=== PATIENT | female | born 1945 | race Caucasian/White ===

== ENCOUNTER 2017-07-06 02:40 | Inpatient (IN) | payer OTHER ==
[~2017-07-06] VITALS: Ht 160 cm; Wt 60.3 kg
[2017-07-06] VITALS (7 sets, daily range): BP systolic 101–163; BP diastolic 47–99
[~2017-07-06 02:40] MED LIST: ALBU1AER4 IN; ALPR0.5T PO; DIG0125T PO; ENA2.5T PO; FURO80TA PO; GLIP-115 PO; HYDR-4683 PO; LEVO150T10 PO; MET50T PO; MULT1TAB23 PO; OMEP20CA74; POTA10TA34 PO; PRAV20TA3 PO; WARF5TAB71 PO
[2017-07-06] MEDS ORDERED: LORazepam 0.5 MG TAB PO PRN (03:30)
[2017-07-06] MEDS ORDERED: MORPHINE SULF INJ 2 MG/ML SYRINGE 1ML IV PRN ×2 (03:30→04:00)
[2017-07-06] MEDS ORDERED: NITROGLYCERIN 0.4 MG SL TAB SL PRN ×2 (03:30→04:00)
[2017-07-06] MEDS ORDERED: SODIUM CHLORIDE 0.9% 1,000 ML IV SCH (03:57)
[2017-07-06] MEDS ORDERED: IPRATROPIUM BROM 0.5 MG/2.5ML INH SOL NEB ONE (04:00)
[2017-07-06] MEDS ORDERED: LACTULOSE 20Gm/30ML SOLN PO PRN (04:00)
[2017-07-06] MEDS ORDERED: ALBUTEROL SULF 2.5 MG/0.5ML(0.5%) NEB SOLN NEB ONE (04:00)
[2017-07-06] MEDS ORDERED: DEXTROSE (50%) 50ML SYRG IV PRN (04:15)
[2017-07-06] MEDS: cefTRIAXone 1GM/50ML D5W 50 ML IV SCH ×2 (05:47→09:32)
[2017-07-06] MEDS: ACCU-CHEK COMFORT CURVE STRIP VI SCH ×3 (05:48→17:16)
[2017-07-06] MEDS: InsuLIN REG 1unit/0.01ml Soln (100units/ml) SC SCH ×3 (05:49→17:16)
[2017-07-06] MEDS ORDERED: ALPRAZolam 0.5 MG TAB PO SCH (06:00)
[2017-07-06] MEDS ORDERED: LEVOTHYROXINE SODIUM 50 MCG TAB PO SCH (07:00)
[2017-07-06] MEDS: IPRATROPIUM BROM 0.5 MG/2.5ML INH SOL NEB SCH ×5 (07:17→22:08)
[2017-07-06 08:04] LABS: Potassium 4.3 mmol/L (3.5-5.1)
[2017-07-06 08:05] LABS: Albumin 3.4 g/dL (3.4-5.0); BUN/Creatinine Ratio 21.8; Bilirubin, Total 1.4 mg/dL (0.2-1.0); Calcium 10.8 mg/dL (8.5-10.1); Total Protein 6.5 g/dL (6.4-8.2)
[2017-07-06 08:10] LABS: INR 2.4 (0.9-1.15); Prothrombin Time 26.4 sec (9.37-12.3)
[2017-07-06] MEDS: POTASSIUM CHL 10 Meq TABLET PO SCH (09:33)
[2017-07-06] MEDS ORDERED: PANTOPRAZOLE 40 MG/10 ML VIAL IV SCH (10:00)
[2017-07-06] MEDS ORDERED: DIGOXIN 0.125 MG TAB PO SCH (10:00)
[2017-07-06] MEDS ORDERED: METOPROLOL TARTRATE 25 MG TAB PO SCH (10:00)
[2017-07-06] MEDS ORDERED: ACETAMINOPHEN 500 MG TAB PO PRN (10:15)
[2017-07-06] MEDS: ALBUTEROL SULF 2.5 MG/0.5ML(0.5%) NEB SOLN NEB PRN ×4 (10:36→22:33)
[2017-07-06 15:28] LABS: Urine Bilirubin Negative (Negative); Urine Blood Negative /uL (Negative); Urine Color Yellow (Yellow); Urine Glucose 2+ mg/dL (Normal); Urine Ketone 1+ (Negative); Urine Nitrite Negative (Negative); Urine RBC <1 /hpf (0 - 4); Urine Squamous Epithelial Cell FEW /hpf (<5); Urine Urobilinogen Normal (Negative)
[2017-07-06] MEDS ORDERED: WARFARIN SODIUM 5 MG TAB PO ONE (17:00)
[2017-07-06] MEDS: Boost Glucose Control 8 Ounces PO SCH (17:16)
[2017-07-06] MEDS ORDERED: FUROSEMIDE 40 MG/4 ML VIAL IV SCH (18:00)
[2017-07-06] MEDS: HYDROcodone-ACET 10/325MG TAB PO PRN (20:00)
[2017-07-06] MEDS ORDERED: ATORVASTATIN 20 MG TAB PO SCH (22:00)
[2017-07-06] MEDS: ENALAPRIL MALEATE 2.5 MG TAB PO SCH (22:19)
[2017-07-06] MEDS: ASCORBIC ACID 500 MG TAB PO SCH (22:19)
[2017-07-06] MEDS: ALPRAZolam 0.5 MG TAB PO SCH (22:20)
[2017-07-06] MEDS: METOPROLOL TARTRATE 25 MG TAB PO SCH (22:20)
[2017-07-06] MEDS: DOCUSATE SOD 100 MG CAP PO SCH (22:21)
[2017-07-07] MEDS: IPRATROPIUM BROM 0.5 MG/2.5ML INH SOL NEB SCH ×3 (02:57→10:06)
[2017-07-07 05:00] VITALS: BP 96/52
[2017-07-07 05:23] LABS: Basophils # (auto) 0 uL; Basophils % (auto) 0.3 % (0.0-2.0); Eosinophils # (auto) 0 uL; Eosinophils % (auto) 0.2 % (0.0-7.0); Hematocrit 37.2 % (36.0-46.0); Hemoglobin 12.2 g/dL (12.2-16.2); Lymphocytes # (auto) 1.1 uL; Lymphocytes % (auto) 19.6 % (10.0-50.0); Mean Corpuscular Hemoglobin 29.8 pg (28.0-32.0); Mean Corpuscular Hgb Conc. 32.9 g/dL (32.0-36.0); Mean Corpuscular Volume 90.4 fL (80.0-100.0); Mean Platelet Volume 8.3 fL (6.9-10.8); Monocytes # (auto) 0.5 uL; Monocytes % (auto) 8.9 % (0.0-12.0); Nucleated Red Blood Cells % 0.1 %; Platelet Count (auto) 115 10^3/uL (140-450); Red Cell Distribution Width 14.7 % (11.8-14.3); White Blood Cell 5.6 10^3/uL (4.4-10.8)
[2017-07-07 05:32] LABS: INR 2.71 (0.9-1.15); Partial Thromboplastin Time 39.2 sec (22.64-33.71); Prothrombin Time 29.8 sec (9.37-12.3)
[2017-07-07] MEDS: ACCU-CHEK COMFORT CURVE STRIP VI SCH ×3 (06:00→12:00)
[2017-07-07] MEDS: InsuLIN REG 1unit/0.01ml Soln (100units/ml) SC SCH ×3 (06:00→12:00)
[2017-07-07 06:01] LABS: Albumin 3.1 g/dL (3.4-5.0); BUN/Creatinine Ratio 29.4; Bilirubin, Total 0.9 mg/dL (0.2-1.0); Calcium 10.5 mg/dL (8.5-10.1); Potassium 4.6 mmol/L (3.5-5.1); Total Protein 5.8 g/dL (6.4-8.2)
[2017-07-07] MEDS ORDERED: LEVOTHYROXINE SODIUM 50 MCG TAB PO SCH ×2 (07:00)
[2017-07-07] MEDS: Boost Glucose Control 8 Ounces PO SCH (08:00)
[2017-07-07 09:00] VITALS: BP 89/45
[2017-07-07] MEDS: HYDROcodone-ACET 10/325MG TAB PO PRN (09:30)
[2017-07-07] MEDS ORDERED: MULTIPLE VITAMIN TAB PO SCH (10:00)
[2017-07-07] MEDS ORDERED: FUROSEMIDE 40 MG/4 ML VIAL IV SCH (10:00)
[2017-07-07] MEDS ORDERED: SPIRONOLACTONE 25 MG TAB PO SCH (10:00)
[2017-07-07] MEDS: METOPROLOL TARTRATE 25 MG TAB PO SCH (10:00)
[2017-07-07] MEDS: ENALAPRIL MALEATE 2.5 MG TAB PO SCH (10:00)
[2017-07-07] MEDS: ALBUTEROL SULF 2.5 MG/0.5ML(0.5%) NEB SOLN NEB PRN (10:06)
[2017-07-07] MEDS: POTASSIUM CHL 10 Meq TABLET PO SCH (10:47)
[2017-07-07] MEDS: DOCUSATE SOD 100 MG CAP PO SCH (10:47)
[2017-07-07] MEDS: ALPRAZolam 0.5 MG TAB PO SCH (10:47)
[2017-07-07] MEDS: ASCORBIC ACID 500 MG TAB PO SCH (10:48)
[2017-07-07] MEDS: cefTRIAXone 1GM/50ML D5W 50 ML IV SCH (10:48)
[2017-07-07 13:00] VITALS: BP 88/56
[2017-07-07 13:19] VITALS: BP 89/45
[2017-07-07] MEDS ORDERED: INFLUENZA QUAD 2017-2018 0.5 ML SYRG IM ONE ×2 (15:00→15:04)
[2017-07-07] MEDS ORDERED: WARFARIN SODIUM 1 MG TAB PO ONE (17:00)
== END 2017-07-07 15:15 | disposition home or self-care (01) | DRG 291 ==
LOC: WEST WING 02:40 → TELE-WESTW 19:52
PROVIDERS: ADMIT Family Medicine; ATTEND Family Medicine
DX: I50.43 Acute on chronic combined systolic (congestive) and diastolic (congestive) heart failure (principal); J96.20 Acute and chronic respiratory failure, unspecified whether with hypoxia or hypercapnia; E46 Unspecified protein-calorie malnutrition; I42.9 Cardiomyopathy, unspecified; I48.91 Unspecified atrial fibrillation; Z99.81 Dependence on supplemental oxygen; E83.52 Hypercalcemia; E03.9 Hypothyroidism, unspecified; E11.9 Type 2 diabetes mellitus without complications; I71.4 Abdominal aortic aneurysm, without rupture; J44.9 Chronic obstructive pulmonary disease, unspecified; F06.4 Anxiety disorder due to known physiological condition; K59.00 Constipation, unspecified; Z86.711 Personal history of pulmonary embolism; Z87.891 Personal history of nicotine dependence; Z68.23 Body mass index [BMI] 23.0-23.9, adult; Z23 Encounter for immunization
CPT/HCPCS: 36415; 71010; 80053; 80061; 80162; 81001; 82962; 83036; 83735; 84443; 84484; 85025; 85379; 85610; 85652; 85730; 93005; 93306; 94640; C9113; J0696; J1815